=== PATIENT | male | born 1930 | race Caucasian/White ===

== ENCOUNTER → 2017-12-21 | Outpatient (CLI) | payer MEDICARE, BC ==
[~2017-12-21] MED LIST: DIOVAN HCT 12.51 TA1 PO
== END ==
LOC: COL.RAD 11:36
DX: N32.89 Other specified disorders of bladder (principal); K80.20 Calculus of gallbladder without cholecystitis without obstruction; K76.0 Fatty (change of) liver, not elsewhere classified; I25.10 Atherosclerotic heart disease of native coronary artery without angina pectoris; I51.7 Cardiomegaly; I31.3 Pericardial effusion (noninflammatory); R31.0 Gross hematuria; Z79.01 Long term (current) use of anticoagulants
CPT/HCPCS: Q9967

== ENCOUNTER → 2018-03-09 | Outpatient (CLI) | payer MEDICARE, BC ==
[~2018-03-09] MED LIST changes: +ATACAND32 MG PO; +COUMADIN 5MG5 MG/TAB PO; +DIOVAN320 MG PO; +LASIX 40MG TABL40 MG PO; +LIPITOR 40MG TA40 MG PO; +NORVASC 5MG5 MG/TAB PO; +PLAVIX 75MG TAB75 MG PO; +PROTONIX 40MG T40 MG PO; +THERAGRAN TAB1 UDTAB PO; +TYLENOL 8 HR PO; +VITAMIN D31000 I1 PO
== END ==
LOC: COL.RAD 03-05 12:45
DX: C67.9 Malignant neoplasm of bladder, unspecified (principal)

== ENCOUNTER 2018-04-16 11:30 | Outpatient (RCR) | payer MEDICARE, BC ==
[2018-02-15 10:30] VITALS: BP 165/85; PULSE 76; TEMP 98.1
[2018-02-16 10:20] VITALS: BP 148/82; PULSE 65; TEMP 97.7
[2018-02-19 10:21] LABS: MEAN CELL VOLUME 96 fl (80.0-100.0); MEAN CORPUSCULAR HEMOGLOBIN 33 pg (27.0-31.0); MEAN CORPUSCULAR HGB CONC 34 g/dl (33.0-37.0); MEAN PLATELET VOLUME 10.8 fl (7.4-10.4); PLATELET COUNT 121 K/mm3 (130-400); RED BLOOD COUNT 3.65 M/mm3 (4.20-5.60); REDCELL DISTRIBUTION WIDTH-CV 12.8 % (11.5-14.5)
[2018-02-19 10:30] VITALS: BP 163/62; PULSE 63; TEMP 97.8
[2018-02-19 10:31] LABS: CREATININE, serum 0.91 mg/dL (0.66-1.25); MAGNESIUM 1.6 mg/dL (1.6-2.3)
[2018-02-19 10:41] LABS: BAND 2 % (0-10); LYMPHOCYTE 6 % (20.0-51.0); NEUTROPHILS 88 % (42.0-75.2); PLATELET ESTIMATE DECREASED (NORMAL)
[2018-02-26 09:30] VITALS: BP 143/56; PULSE 54; TEMP 98.7
[2018-02-26 10:00] LABS: MEAN CELL VOLUME 94 fl (80.0-100.0); MEAN CORPUSCULAR HEMOGLOBIN 33 pg (27.0-31.0); MEAN CORPUSCULAR HGB CONC 35 g/dl (33.0-37.0); MEAN PLATELET VOLUME 10.8 fl (7.4-10.4); PLATELET COUNT 123 K/mm3 (130-400); RED BLOOD COUNT 3.62 M/mm3 (4.20-5.60); REDCELL DISTRIBUTION WIDTH-CV 12.5 % (11.5-14.5)
[2018-02-26 10:02] LABS: HEMATOCRIT 33.9 % (42.0-52.0)
[2018-02-26 10:07] LABS: CREATININE, serum 1.8 mg/dL (0.66-1.25); MAGNESIUM 1.6 mg/dL (1.6-2.3)
[2018-02-26 10:16] LABS: BAND 12 % (0-10); LYMPHOCYTE 3 % (20.0-51.0); NEUTROPHILS 83 % (42.0-75.2)
[2018-02-26 10:17] LABS: PLATELET ESTIMATE DECREASED (NORMAL)
[2018-03-03 10:30] VITALS: BP 142/45; PULSE 80; TEMP 98.3
[2018-03-03 10:35] LABS: HEMOGLOBIN 11.1 g/dl (13.5-18.0); MEAN CELL VOLUME 97 fl (80.0-100.0); MEAN CORPUSCULAR HEMOGLOBIN 34 pg (27.0-31.0); MEAN CORPUSCULAR HGB CONC 35 g/dl (33.0-37.0); MEAN PLATELET VOLUME 10.8 fl (7.4-10.4); PLATELET COUNT 101 K/mm3 (130-400); RED BLOOD COUNT 3.25 M/mm3 (4.20-5.60); REDCELL DISTRIBUTION WIDTH-CV 13.2 % (11.5-14.5)
[2018-03-03 10:36] LABS: HEMATOCRIT 31.6 % (42.0-52.0)
[2018-03-03 10:55] LABS: CREATININE, serum 2.8 mg/dL (0.66-1.25)
[2018-03-03 10:58] LABS: BAND 14 % (0-10); EOSINOPHIL 2 % (0-4); LYMPHOCYTE 11 % (20.0-51.0); NEUTROPHILS 65 % (42.0-75.2); PLATELET ESTIMATE DECREASED (NORMAL)
[2018-03-10 08:53] VITALS: BP 159/63; PULSE 50; TEMP 97.5
[2018-03-10 09:13] LABS: HEMOGLOBIN 11.2 g/dl (13.5-18.0); MEAN CELL VOLUME 96 fl (80.0-100.0); MEAN CORPUSCULAR HEMOGLOBIN 33 pg (27.0-31.0); MEAN CORPUSCULAR HGB CONC 35 g/dl (33.0-37.0); MEAN PLATELET VOLUME 9.9 fl (7.4-10.4); PLATELET COUNT 119 K/mm3 (130-400); RED BLOOD COUNT 3.36 M/mm3 (4.20-5.60); REDCELL DISTRIBUTION WIDTH-CV 13.2 % (11.5-14.5)
[2018-03-10 09:16] LABS: CREATININE, serum 2.28 mg/dL (0.66-1.25); HEMATOCRIT 32.2 % (42.0-52.0); MAGNESIUM 1.4 mg/dL (1.6-2.3)
[2018-03-10 11:06] LABS: BAND 6 % (0-10); BASOPHIL 2 % (0-2); EOSINOPHIL 7 % (0-4); LYMPHOCYTE 19 % (20.0-51.0); NEUTROPHILS 55 % (42.0-75.2)
[2018-03-10 11:14] LABS: PLATELET ESTIMATE DECREASED (NORMAL)
[2018-03-17 10:15] VITALS: BP 167/67; PULSE 95; TEMP 97.9
[2018-03-17 10:29] LABS: HEMOGLOBIN 10.9 g/dl (13.5-18.0); MEAN CELL VOLUME 94 fl (80.0-100.0); MEAN CORPUSCULAR HEMOGLOBIN 33 pg (27.0-31.0); MEAN CORPUSCULAR HGB CONC 35 g/dl (33.0-37.0); MEAN PLATELET VOLUME 10.2 fl (7.4-10.4); PLATELET COUNT 80 K/mm3 (130-400); RED BLOOD COUNT 3.28 M/mm3 (4.20-5.60); REDCELL DISTRIBUTION WIDTH-CV 13.2 % (11.5-14.5)
[2018-03-17 10:30] LABS: HEMATOCRIT 30.8 % (42.0-52.0)
[2018-03-17 10:38] LABS: CREATININE, serum 1.23 mg/dL (0.66-1.25); MAGNESIUM 1.2 mg/dL (1.6-2.3)
[2018-03-17 10:41] LABS: BAND 7 % (0-10); EOSINOPHIL 5 % (0-4); LYMPHOCYTE 6 % (20.0-51.0); METAMYELOCYTE 1 % (0-0); NEUTROPHILS 77 % (42.0-75.2); PLATELET ESTIMATE DECREASED (NORMAL)
[2018-03-24 10:44] VITALS: BP 157/72; PULSE 91; TEMP 98.4
[2018-03-24 10:53] LABS: MEAN CELL VOLUME 94 fl (80.0-100.0); MEAN CORPUSCULAR HGB CONC 35 g/dl (33.0-37.0); MEAN PLATELET VOLUME 10.5 fl (7.4-10.4); PLATELET COUNT 85 K/mm3 (130-400); RED BLOOD COUNT 2.85 M/mm3 (4.20-5.60); REDCELL DISTRIBUTION WIDTH-CV 13.2 % (11.5-14.5)
[2018-03-24 10:59] LABS: HEMATOCRIT 26.8 % (42.0-52.0); HEMOGLOBIN 9.5 g/dl (13.5-18.0); MEAN CORPUSCULAR HEMOGLOBIN 33 pg (27.0-31.0)
[2018-03-24 11:03] LABS: ALBUMIN 3.5 gm/dL (3.5-5.0); CALCIUM 8.6 mg/dL (8.4-10.2); CREATININE, serum 1.09 mg/dL (0.66-1.25); POTASSIUM 4.1 mmol/L (3.4-5.0); TOTAL PROTEIN 6.5 gm/dL (6.4-8.2)
[2018-03-24 11:37] LABS: BAND 19 % (0-10); EOSINOPHIL 2 % (0-4); LYMPHOCYTE 10 % (20.0-51.0); NEUTROPHILS 68 % (42.0-75.2)
[2018-03-24 11:38] LABS: PLATELET ESTIMATE NORMAL (NORMAL)
[2018-03-31 10:00] VITALS: BP 129/53; PULSE 77; TEMP 98
[2018-03-31 10:25] LABS: MEAN CELL VOLUME 95 fl (80.0-100.0); MEAN CORPUSCULAR HGB CONC 35 g/dl (33.0-37.0); MEAN PLATELET VOLUME 10.2 fl (7.4-10.4); PLATELET COUNT 129 K/mm3 (130-400); RED BLOOD COUNT 2.76 M/mm3 (4.20-5.60); REDCELL DISTRIBUTION WIDTH-CV 14.1 % (11.5-14.5)
[2018-03-31 10:30] LABS: CREATININE, serum 1.06 mg/dL (0.66-1.25); MAGNESIUM 1.1 mg/dL (1.6-2.3)
[2018-03-31 10:35] LABS: BAND 15 % (0-10); EOSINOPHIL 2 % (0-4); LYMPHOCYTE 8 % (20.0-51.0); NEUTROPHILS 67 % (42.0-75.2); PLATELET ESTIMATE DECREASED (NORMAL)
[2018-03-31 10:37] LABS: HEMATOCRIT 26.1 % (42.0-52.0); HEMOGLOBIN 9.2 g/dl (13.5-18.0); MEAN CORPUSCULAR HEMOGLOBIN 33 pg (27.0-31.0)
[2018-04-07 10:26] LABS: MEAN CELL VOLUME 98 fl (80.0-100.0); MEAN CORPUSCULAR HGB CONC 34 g/dl (33.0-37.0); MEAN PLATELET VOLUME 9.9 fl (7.4-10.4); PLATELET COUNT 120 K/mm3 (130-400); RED BLOOD COUNT 2.54 M/mm3 (4.20-5.60); REDCELL DISTRIBUTION WIDTH-CV 16.1 % (11.5-14.5)
[2018-04-07 10:33] LABS: HEMOGLOBIN 8.6 g/dl (13.5-18.0); MEAN CORPUSCULAR HEMOGLOBIN 34 pg (27.0-31.0)
[2018-04-07 10:49] LABS: CREATININE, serum 0.98 mg/dL (0.66-1.25); MAGNESIUM 1.1 mg/dL (1.6-2.3)
[2018-04-07 10:59] VITALS: BP 152/55; PULSE 84; TEMP 98.4
[2018-04-07 11:10] LABS: BAND 10 % (0-10); EOSINOPHIL 1 % (0-4); LYMPHOCYTE 7 % (20.0-51.0); METAMYELOCYTE 1 % (0-0); NEUTROPHILS 75 % (42.0-75.2); PLATELET ESTIMATE DECREASED (NORMAL)
[2018-04-14 10:35] LABS: MEAN CELL VOLUME 101 fl (80.0-100.0); MEAN CORPUSCULAR HGB CONC 34 g/dl (33.0-37.0); MEAN PLATELET VOLUME 9.8 fl (7.4-10.4); PLATELET COUNT 118 K/mm3 (130-400); RED BLOOD COUNT 2.41 M/mm3 (4.20-5.60); REDCELL DISTRIBUTION WIDTH-CV 18.4 % (11.5-14.5)
[2018-04-14 10:39] LABS: CREATININE, serum 1.03 mg/dL (0.66-1.25); MAGNESIUM 1.1 mg/dL (1.6-2.3)
[2018-04-14 10:54] VITALS: BP 155/46; PULSE 67; TEMP 97.3
[2018-04-14 10:54] LABS: HEMOGLOBIN 8.3 g/dl (13.5-18.0); MEAN CORPUSCULAR HEMOGLOBIN 34 pg (27.0-31.0)
[2018-04-14 10:55] LABS: HEMATOCRIT 24.4 % (42.0-52.0)
[2018-04-14 11:00] LABS: BAND 15 % (0-10); BASOPHIL 1 % (0-2); EOSINOPHIL 4 % (0-4); LYMPHOCYTE 9 % (20.0-51.0); NEUTROPHILS 66 % (42.0-75.2); PLATELET ESTIMATE DECREASED (NORMAL)
[~2018-04-16] VITALS: Ht 182.9 cm; Wt 109.1 kg
[2018-04-16 11:28] VITALS: BP 141/79; PULSE 74; TEMP 97.6
== END 2018-04-16 13:50 | disposition home or self-care (01) ==
LOC: EUO 11:30
PROVIDERS: Internal Medicine Medical Oncology
DX: C67.3 Malignant neoplasm of anterior wall of bladder (principal); I10 Essential (primary) hypertension; N13.30 Unspecified hydronephrosis; Z45.2 Encounter for adjustment and management of vascular access device; Z95.9 Presence of cardiac and vascular implant and graft, unspecified
CPT/HCPCS: C1751

== ENCOUNTER → 2019-04-25 | Outpatient (CLI) | payer MEDICARE, BC | LOC: COL.RAD 07:57 | DX: C67.3 Malignant neoplasm of anterior wall of bladder (principal); R91.1 Solitary pulmonary nodule; I70.0 Atherosclerosis of aorta; Z98.890 Other specified postprocedural states | CPT/HCPCS: Q9967 ==